=== PATIENT | male | born 1940 | race Caucasian/White ===

== ENCOUNTER 2017-08-12 15:42 | Observation (INO) ==
[2017-08-12] MEDS ORDERED: ceFAZolin 1,000 MG in Water for inj. (sterile) 10 ML IVP ONE (16:10)
[2017-08-12] MEDS ORDERED: Vancomycin 1,000 MG in D5% in Water 250 ML IVPB ONE (16:10)
--- NOTE | 2017-08-12 16:13 | Emergency Department Note ---
Disposition Clinical Impression: Cellulitis of left anterior lower leg Disposition: Admitted As Inpatient Condition: Good Referrals: Matias Meza DO [Primary Care Provider] - Forms: ED Satisfaction Letter Time of Disposition: 17:48 Extremity Problem HPI - General Chief complaint: ED Extremity Injury, Lower Stated complaint: redness and swelling to bilat legs Time Seen by Provider: 08/12/17 16:05 Source: patient Mode of arrival: ambulatory Limitations: no limitations Nursing Notes Reviewed: Yes Vital Signs Reviewed: Yes - History of Present Illness HPI Narrative: 77-year-old white male who presents with swelling and redness in his legs for 4 days. No fever. No history of trauma. He has had some intermittent chronic edema in his legs. It is worse than usual. The redness is new. No fever or chills. He has had some clear drainage. He is a diabetic, his blood sugars have not been running any higher than usual. Pt Subjective Complaint: extremity pain, extremity swelling, other (Redness) Onset (ago): day(s) (4) Consistency: constant Injury Location: left, right, lower extremity Pain Scale: 6 Quality: burning Radiation: none Improves with: nothing Worsens with: weight bearing, walking Associated symptoms: Reports: denies other symptoms - Related Data Home Medications Medication Instructions Recorded Confirmed Aspirin 81 mg PO DAILY 02/20/16 08/12/17 Atenolol [Tenormin] 50 mg PO DAILY 02/20/16 08/12/17 Clopidogrel [Plavix] 75 mg PO DAILY 02/20/16 08/12/17 Furosemide [Lasix] 40 mg PO BID 02/20/16 08/12/17 Hydralazine HCl 25 mg PO TID 02/20/16 08/12/17 Insulin ASPART [Novolog] 50 unit SQ HS 02/20/16 08/12/17 Insulin Human Regular [HumuLIN R] 40 unit SQ TIDWM 02/20/16 08/12/17 Iron 65 mg PO DAILY 02/20/16 08/12/17 Lisinopril 30 mg PO BID 02/20/16 08/12/17 Lovastatin [Altoprev] 40 mg PO HS 02/20/16 08/12/17 Mv-Mn/FA/Lycopene/Lut/Hb#178 [Marshall 1 each PO DAILY 02/20/16 08/12/17 Multivit For Men Caplet] Previous Rx's Medication Instructions Recorded OxyCODONE/APAP 5/325 [Percocet 1 each PO Q6HR PRN #12 tablet 04/15/16 5/325 MG] Allergies Allergy/AdvReac Type Severity Reaction Status Date / Time No Known Allergies Allergy Verified 03/27/17 11:02 All systems ED: reviewed and negative except as stated. Constitutional: Denies: fever, chills ENT ED: Denies: ear pain, throat pain Cardiovascular: Denies: chest pain Respiratory: Denies: cough, dyspnea Gastrointestinal: Denies: abdominal pain, nausea, vomiting Genitourinary: Denies: urgency, dysuria, frequency Musculoskeletal: Reports: as per HPI Integumentary: Reports: other (Erythema both legs, left greater than right.) Past Medical History - Past Medical History Medical history: Reports: arthritis, coronary artery disease, diabetes, hypertension, kidney stones, renal disease, other Surgical history: Reports: angioplasty/stent, knee replacement, other Psychiatric history: Reports: no psych history - Social History Smoking Status: Never smoker Smokeless Tobacco Status: No Alcohol use: Reports: none Drug use: Reports: none Physical Exam - General Limitations: no limitations General appearance: alert, in no apparent distress, obese - Head Head exam: atraumatic, normocephalic - Eye Eye exam: Present: PERRL, EOMI. Absent: scleral icterus, conjunctival injection - ENT ENT exam: normal oropharynx, mucous membranes moist, TM's normal bilaterally - Neck Neck exam: Present: normal inspection, full ROM, trachea midline. Absent: lymphadenopathy - Chest Chest inspection: Present: normal inspection, symmetric chest wall rise - Respiratory Respiratory exam: Present: normal lung sounds bilaterally. Absent: respiratory distress - Cardiovascular Cardiovascular exam: Present: regular rate, normal rhythm, normal heart sounds - Abdominal Exam Abdominal exam: Present: soft, Non-Tender, normal bowel sounds. Absent: organomegaly, mass - Extremities Exam Extremities exam: Present: normal capillary refill, other (4+ edema to the left lower leg starting at the knee extending down and including the ankle and foot. There is diffuse erythema over the anterior tibia at the junction of the middle and proximal one third. It extends over the medial lateral lower leg down to but not including the ankle. There are a few areas that have some clear drainage. The edema is pitting. The right lower extremity has 2+ edema starting below the knee and includes the ankle and foot. It is pitting. There are a few very small areas of minimal erythema.). Absent: tenderness - Back Exam Back exam: Absent: CVA tenderness (R), CVA tenderness (L) - Neurological Exam Neurological exam: Present: alert, oriented X3, normal gait. Absent: motor sensory deficit - Psychiatric Psychiatric exam: Present: normal affect, normal mood - Skin Skin exam: Present: erythema (Lower extremities as described above). Absent: cyanosis, diaphoresis Course Vital Signs Temperature 98.4 F 08/12/17 15:46 Pulse Rate 68 08/12/17 15:46 Respiratory Rate 18 08/12/17 15:46 Blood Pressure 196/84 08/12/17 15:46 O2 Sat by Pulse Oximetry 95 08/12/17 15:46 Temperature 98.4 F 08/12/17 15:46 Pulse Rate 61 08/12/17 17:34 Respiratory Rate 18 08/12/17 17:34 Blood Pressure 166/72 08/12/17 17:34 O2 Sat by Pulse Oximetry 98 08/12/17 17:34 Oxygen Delivery Oxygen Delivery Room Air Extremity Problem, Nontraumati - MDM Narrative Medical decision making narrative: Medically as a cellulitis of his left leg. He was started on IV Ancef and vancomycin. I discussed case with Dr. Siddiqi's accepted patient for admission. - Differential Diagnosis Likely: cellulitis, superficial thrombophlebitis, deep venous thrombosis, lower extremity edema - Lab Data Lab results reviewed: Yes I reviewed the patient's lab results. Result diagrams: 08/12/17 16:30 08/12/17 16:30 Lab Results 08/12/17 08/12/17 08/12/17 Range/Units 16:30 16:30 16:30 WBC 10.3 (4.3-11.1) K/mcL RBC 3.18 L (4.19-5.50) M/mcL Hgb 9.8 L (12.9-16.9) g/dL Hct 30.0 L (37.5-50.1) % MCV 94.3 (83.0-100.0) fL MCH 30.8 (28.0-33.3) pg MCHC 32.7 (31.6-35.5) g/dL RDW 14.0 (11.5-14.5) % Plt Count 260 (140-400) K/mcL MPV 10.1 (9.4-12.4) fL Immature Gran % 0.3 (0-4) % Seg Neutrophils % 63.3 % Lymphocytes % 20.1 % Monocytes % 14.1 % Eosinophils % 1.8 % Basophils % 0.4 % Neutrophils # 6.5 (1.6-8.9) K/mcL Lymphocytes # 2.1 (0.6-4.6) K/mcL Monocytes # 1.5 H (0.0-1.3) K/mcL Eosinophils # 0.2 (0.0-0.6) K/mcL Basophils # 0.0 (0.0-0.2) K/mcL Sodium 138 (136-145) mEq/L Potassium 4.7 H (3.5-4.5) mEq/L Chloride 107 (98-109) mEq/L Carbon Dioxide 22 (19-29) mEq/L BUN 47 H (8-26) mg/dL Creatinine 2.60 H (0.72-1.25) mg/dL Est GFR ( Amer) 29 L (> 60) Est GFR (Non-Af Amer) 24 L (> 60) BUN/Creatinine Ratio 18 (6-26) Glucose 199 H (70-99) mg/dL Calculated Osmolality 304 H (280-300) Lactic Acid 0.8 (0.5-2.2) mmol/L Calcium 8.9 (8.6-10.8) mg/dL Total Bilirubin 0.3 (0.2-1.2) mg/dL AST 18 (5-34) Units/L ALT 13 (0-55) Units/L Alkaline Phosphatase 120 (38-126) Units/L Serum Total Protein 6.6 (6.0-8.3) g/dL Albumin 2.4 L (3.5-5.0) g/dL Globulin 4.2 H (2.4-3.5) g/dL Albumin/Globulin Ratio 0.6 L (1.1-2.2) Urine Color (Yellow) Urine Clarity (Clear) Urine pH (5.0-8.0) pH Units Ur Specific [place] (1.010-1.025) Urine Protein (Neg-Trace) mg/dL Urine Glucose (UA) (Normal) mg/dL Urine Ketones (Negative) mg/dL Urine Blood (Negative) Urine Nitrite (Negative) Urine Bilirubin (Negative) Urine Urobilinogen (Normal) mg/dL Ur Leukocyte Esterase (Negative) Urine Microscopic RBC (0-3) per hpf Ur Squamous Epith Cells (None-Few) per lpf Urine Bacteria (None-Few) per hpf Hyaline Casts (None-Few) per lpf Urine Mucus (Few) Ur Culture Indicated? (NO) 08/12/17 Range/Units 16:35 WBC (4.3-11.1) K/mcL RBC (4.19-5.50) M/mcL Hgb (12.9-16.9) g/dL Hct (37.5-50.1) % MCV (83.0-100.0) fL MCH (28.0-33.3) pg MCHC (31.6-35.5) g/dL RDW (11.5-14.5) % Plt Count (140-400) K/mcL MPV (9.4-12.4) fL Immature Gran % (0-4) % Seg Neutrophils % % Lymphocytes % % Monocytes % % Eosinophils % % Basophils % % Neutrophils # (1.6-8.9) K/mcL Lymphocytes # (0.6-4.6) K/mcL Monocytes # (0.0-1.3) K/mcL Eosinophils # (0.0-0.6) K/mcL Basophils # (0.0-0.2) K/mcL Sodium (136-145) mEq/L Potassium (3.5-4.5) mEq/L Chloride (98-109) mEq/L Carbon Dioxide (19-29) mEq/L BUN (8-26) mg/dL Creatinine (0.72-1.25) mg/dL Est GFR ( Amer) (> 60) Est GFR (Non-Af Amer) (> 60) BUN/Creatinine Ratio (6-26) Glucose (70-99) mg/dL Calculated Osmolality (280-300) Lactic Acid (0.5-2.2) mmol/L Calcium (8.6-10.8) mg/dL Total Bilirubin (0.2-1.2) mg/dL AST (5-34) Units/L ALT (0-55) Units/L Alkaline Phosphatase (38-126) Units/L Serum Total Protein (6.0-8.3) g/dL Albumin (3.5-5.0) g/dL Globulin (2.4-3.5) g/dL Albumin/Globulin Ratio (1.1-2.2) Urine Color Yellow (Yellow) Urine Clarity Clear (Clear) Urine pH 6.0 (5.0-8.0) pH Units Ur Specific [place] 1.015 (1.010-1.025) Urine Protein >=300 H (Neg-Trace) mg/dL Urine Glucose (UA) 100 H (Normal) mg/dL Urine Ketones Negative (Negative) mg/dL Urine Blood Negative (Negative) Urine Nitrite Negative (Negative) Urine Bilirubin Negative (Negative) Urine Urobilinogen Normal (Normal) mg/dL Ur Leukocyte Esterase Negative (Negative) Urine Microscopic RBC 0-3 (0-3) per hpf Ur Squamous Epith Cells Few (None-Few) per lpf Urine Bacteria Few (None-Few) per hpf Hyaline Casts Few (None-Few) per lpf Urine Mucus Few (Few) Ur Culture Indicated? NO (NO)
[2017-08-12 16:39] LABS: Basophils % 0.4 %; Eosinophils # 0.2 K/mcL (0.0-0.6); Eosinophils % 1.8 %; Hemoglobin 9.8 g/dL (12.9-16.9); Immature Granulocytes % 0.3 % (0-4); Lymphocytes # 2.1 K/mcL (0.6-4.6); Lymphocytes % 20.1 %; Mean Corpuscular HGB Conc 32.7 g/dL (31.6-35.5); Mean Corpuscular Hemoglobin 30.8 pg (28.0-33.3); Mean Corpuscular Volume 94.3 fL (83.0-100.0); Mean Platelet Volume 10.1 fL (9.4-12.4); Monocytes # 1.5 K/mcL (0.0-1.3); Monocytes % 14.1 %; Neutrophils # 6.5 K/mcL (1.6-8.9); Platelet Count 260 K/mcL (140-400); Red Blood Count 3.18 M/mcL (4.19-5.50); Segmented Neutrophils % 63.3 %
[2017-08-12 16:49] LABS: Bilirubin,Urine Negative (Negative); Blood,Urine Negative (Negative); Clarity,Urine Clear (Clear); Color,Urine Yellow (Yellow); Glucose,Urine (UA) 100 mg/dL (Normal); Ketones,Urine Negative (Negative); Leukocyte Esterase,Urine Negative (Negative); Nitrite,Urine Negative (Negative); Protein,Urine >=300 mg/dL (Neg-Trace); Specific Gravity,Urine 1.015 (1.010-1.025); Urobilinogen,Urine Normal (Normal)
[2017-08-12 16:54] LABS: Bacteria,Urine Few per hpf (None-Few); Hyaline Casts,Urine Few per lpf (None-Few); Mucus,Urine Few (Few); RBC,Urine 0-3 per hpf (0-3); Squamous Epithelial Cell,Urine Few per lpf (None-Few)
[2017-08-12 16:55] LABS: Albumin 2.4 g/dL (3.5-5.0); Albumin/Globulin Ratio 0.6 (1.1-2.2); Bilirubin,Total 0.3 mg/dL (0.2-1.2); Calcium 8.9 mg/dL (8.6-10.8); Globulin 4.2 g/dL (2.4-3.5); Potassium 4.7 mEq/L (3.5-4.5); Total Protein 6.6 g/dL (6.0-8.3)
[2017-08-12] MEDS ORDERED: *HR* OxyCODONE/APAP 5/325 TABLET PO ONE (17:01)
[2017-08-12] MEDS ORDERED: Naloxone 0.4 MG/ML INJ IVP PRN (19:32)
[2017-08-12] MEDS ORDERED: Furosemide 40 MG TABLET PO SCH (21:00)
[2017-08-12] MEDS ORDERED: Insulin LISPRO 300 UNITS/3 ML VIAL SQ SCH (21:00)
[2017-08-12] MEDS ORDERED: Insulin DETEMIR 100 UNIT/ML per UNIT SQ ONE (22:30)
[2017-08-12] MEDS: *HR* OxyCODONE/APAP 5/325 TABLET PO PRN (23:11)
[2017-08-12] MEDS: hydrALAZINE 25 MG TABLET PO SCH (23:12)
[2017-08-12] MEDS: Lisinopril 20 MG TABLET PO SCH (23:12)
[2017-08-13] MEDS ORDERED: ceFAZolin 1,000 MG in D5% in Water (Mini-Bag+) 100 ML IVPB SCH
[2017-08-13] MEDS ORDERED: *HR* Enoxaparin 40 MG/0.4 ML SYRINGE SQ SCH (06:00)
[2017-08-13] MEDS: *HR* OxyCODONE/APAP 5/325 TABLET PO PRN ×2 (06:50→17:06)
[2017-08-13] MEDS: Lisinopril 20 MG TABLET PO SCH (09:18)
[2017-08-13] MEDS: Multivit/Ca/Min/Fe/FA 1 TAB TABLET PO SCH (09:18)
[2017-08-13] MEDS: Aspirin 81 MG TAB.CHEW PO SCH (09:19)
[2017-08-13] MEDS: hydrALAZINE 25 MG TABLET PO SCH ×3 (09:19→21:31)
--- NOTE | 2017-08-13 12:33 | Internal Med History&Physical ---
Date of Encounter: 08/13/17 Time of Encounter: 11:40 Assessment and Plan (1) Cellulitis of left anterior lower leg Current visit: Yes Status: Acute He has been started on IV Ancef. He was given vancomycin in the emergency room. Will add lactobacillus. (2) Edema Current visit: Yes Status: Chronic We will check d-dimer, BN peptide, and start IV Bumex Qualifiers: Edema type: unspecified Qualified Code(s): R60.9 - Edema, unspecified (3) CKD (chronic kidney disease) Current visit: Yes Status: Acute Will monitor renal indices. Qualifiers: Chronic kidney disease stage: stage 4 (severe) Qualified Code(s): N18.4 - Chronic kidney disease, stage 4 (severe) (4) Anemia Current visit: Yes Status: Acute Order anemia testing in a.m. Qualifiers: Anemia type: unspecified type Qualified Code(s): D64.9 - Anemia, unspecified (5) Hyperuricemia Current visit: Yes Status: Acute Uric acid was 8.2 on 09/17/2016. Will recheck. Internal Medicine - H&P: HPI Chief complaint: Leg redness with weeping edema Admitted From: Home Plans for Post Hospital Care: Home History of present illness: Mr. Cruz is a 77 year old male who came to emergency room stating he had increasing redness and weeping edema on his left lower leg onset approximately 1 week earlier. He has chronic edema of the legs that has been present for years but he thinks the edema has slightly worsened. He denies fevers or chills. He was evaluated in emergency room and felt to have left lower leg cellulitis. He was admitted to [facility] floor for ongoing care needs. He states he has had bilateral edema in the legs and sustained an injury several years ago to the left lower leg resulting in a fracture. He has had bilateral knee replacements. He has DJD but denies gout or other bone joint or muscle disorders. His cardiovascular history is significant for hypertension and known ASHD status post single stents placed in 2007 in 2010. He has not had a stress test or heart cath since the last stent. An echocardiogram done 08/12/2013 showed LVEF of 55-60%. There was increased thickness measurement of the interventricular septum and posterior wall at 1.20 cm each. There was LAE at 4.80 cm. There was mild MR and mild to moderate tricuspid regurgitation. There was significant elevation of the RVSP estimated 64-69 mmHg. There was felt to be moderate diastolic dysfunction of the LV present. He denies DVT or pulmonary emboli. Past Med Surg Social Fam HX - Past Medical History Medical history: arthritis, coronary artery disease, diabetes, hypertension, kidney stones, renal disease, other Psychiatric history: no psych history - Past Surgical History Surgical History: angioplasty/stent, knee replacement, other - Social History Smoking Status: Never smoker Smokeless Tobacco Status: No Alcohol use: none Drug use: none Internal Medicine - H&P: Meds Aspirin 81 mg PO DAILY 02/20/16 [History] Atenolol [Tenormin] 50 mg PO DAILY 02/20/16 [History] Clopidogrel [Plavix] 75 mg PO DAILY 02/20/16 [History] Furosemide [Lasix] 40 mg PO BID 02/20/16 [History] Hydralazine HCl 25 mg PO TID 02/20/16 [History] Insulin ASPART [Novolog] 50 unit SQ HS 02/20/16 [History] Insulin Human Regular [HumuLIN R] 40 unit SQ TIDWM 02/20/16 [History] Iron 65 mg PO DAILY 02/20/16 [History] Lisinopril 30 mg PO BID 02/20/16 [History] Lovastatin [Altoprev] 40 mg PO HS 02/20/16 [History] Mv-Mn/FA/Lycopene/Lut/Hb#178 [Marshall Multivit For Men Caplet] 1 each PO DAILY [History] OxyCODONE/APAP 5/325 [Percocet 5/325 MG] 1 each PO Q6HR PRN #12 tablet 04/15/16 [Rx] 3 Allergy/AdvReac Type Severity Reaction Status Date / Time No Known Allergies Allergy Verified 03/27/17 11:02 All Systems PM: A 10-system review of systems was performed and is negative for pertinent findings except as documented above in the HPI. Review of systems: Gen.: He states his weight has been stable for many months Cardiovascular: As per history of present illness Respiratory: He smoked from age [age]. He denies chronic lung disease and does not use home oxygen. GI: He denies disorders of his liver gallbladder or exocrine pancreas : He has had uric acid kidney stones in the past. He denies history of gout. 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 Denies other kidney bladder prostate disorders. Neurologic: He denies large distribution strokes or seizures. Endocrine: He was diagnosed with DM 2 approximately 2001. He has hyperlipidemia but denies thyroid disease. Hematology/oncology: He has chronic anemia. He denies internal malignancies. Psychiatric: He denies anxiety depression or other mental health issues Musk skeletal: As per history of present illness - Constitutional Vitals: Temp Pulse Resp BP Pulse Ox 98.1 F 73 18 185/80 96 08/13/17 10:47 08/13/17 10:47 08/13/17 10:47 08/13/17 10:47 08/13/17 10:47 Exam: Gen.: He is a well-developed well-nourished male sitting on the side of the bed who appears in no acute distress. HEENT: Head is atraumatic and normocephalic. Eyes: EOMI. There is no scleral icterus. Mouth: Mucosa is moist. Neck: Supple and nontender. There is no thyromegaly or adenopathy noted. Heart: Regular without murmurs gallops or ectopics Lungs: No wheezes or crackles are heard. Abdomen: Soft and nontender. No masses or guarding are noted. Extremities: He has 2-3+ edema of the right leg and 3-4+ edema of the left lower leg. There is slight deformity of the left lower leg from previous injury and surgery. He has some diffuse erythema of the left lower leg with a few areas of serous fluid drainage. Dorsalis pedis and posttibial pulses are not palpable. He has minimal DJD changes of his hands. Neurologic: Mental status: He is talkative and a good historian. Cranial nerves : Smile is symmetric. Forehead wrinkles bilaterally. Temperature its midline. EOMI. Motor: There is no pronator drift. Cerebellar: Fair to nose is intact bilaterally. Skin: [place] and dry with left lower leg abnormalities as described. Internal Med - H&P Results - Labs CBC & Chem 7: 08/12/17 16:30 08/12/17 16:30
[2017-08-13] MEDS: ceFAZolin 1,000 MG in Water for inj. (sterile) 10 ML IVPB SCH (14:16)
[2017-08-13] MEDS: Bumetanide 1 MG/4 ML VIAL IVP SCH (14:16)
[2017-08-13] MEDS ORDERED: *HR* Enoxaparin 100 MG/ML SYRINGE SQ STA (14:30)
[2017-08-13] MEDS: cloNIDine HCl 0.1 MG TABLET PO SCH ×2 (14:44→21:31)
[2017-08-13] MEDS ORDERED: Insulin DETEMIR 100 UNIT/ML X5UNITS SQ SCH (21:00)
[2017-08-14] MEDS: ceFAZolin 1,000 MG in Water for inj. (sterile) 10 ML IVPB SCH (02:23)
[2017-08-14] MEDS: *HR* OxyCODONE/APAP 5/325 TABLET PO PRN (03:35)
[2017-08-14] MEDS ORDERED: *HR* Enoxaparin 30 MG/0.3 ML SYRINGE SQ SCH (06:00)
[2017-08-14] MEDS ORDERED: *HR* Enoxaparin 150 MG/ML SYRINGE SQ SCH (06:00)
[2017-08-14 06:05] LABS: Basophils % 0.6 %; Eosinophils # 0.3 K/mcL (0.0-0.6); Hematocrit 26.3 % (37.5-50.1); Hemoglobin 8.5 g/dL (12.9-16.9); Immature Granulocytes % 0.4 % (0-4); Lymphocytes # 1.6 K/mcL (0.6-4.6); Lymphocytes % 24.2 %; Mean Corpuscular HGB Conc 32.3 g/dL (31.6-35.5); Mean Corpuscular Hemoglobin 30.4 pg (28.0-33.3); Mean Corpuscular Volume 93.9 fL (83.0-100.0); Mean Platelet Volume 10.4 fL (9.4-12.4); Neutrophils # 3.9 K/mcL (1.6-8.9); Platelet Count 243 K/mcL (140-400); Segmented Neutrophils % 56.8 %
[2017-08-14] MEDS: Bumetanide 1 MG/4 ML VIAL IVP SCH (07:25)
[2017-08-14] MEDS: Insulin Regular, Human 100 UNIT/ML SQ SCH (07:25)
[2017-08-14] MEDS ORDERED: Bumetanide 1 MG/4 ML VIAL IVP SCH (08:00)
[2017-08-14] MEDS: Multivit/Ca/Min/Fe/FA 1 TAB TABLET PO SCH (08:28)
[2017-08-14] MEDS: cloNIDine HCl 0.1 MG TABLET PO SCH (08:28)
[2017-08-14] MEDS: Aspirin 81 MG TAB.CHEW PO SCH (08:28)
[2017-08-14] MEDS: hydrALAZINE 25 MG TABLET PO SCH (08:28)
[2017-08-14 08:52] LABS: Hemoglobin A1C 7.6 %
[2017-08-14 11:24] VITALS: BP 161/68
[2017-08-14 12:23] LABS: % Iron Saturation 15 % (20-55); Iron 34 mcg/dL (65-175); Transferrin 159 mg/dL (174-364)
--- NOTE | 2017-08-14 12:39 | Discharge Summary ---
Date of Encounter: 08/14/17 Time of Encounter: 12:25 - Discharge Diagnosis (1) Cellulitis of left anterior lower leg Priority: Primary Status: Acute (2) Edema Priority: Secondary Status: Chronic Qualifiers: Edema type: unspecified Qualified Code(s): R60.9 - Edema, unspecified (3) CKD (chronic kidney disease) Priority: Secondary Status: Chronic Qualifiers: Chronic kidney disease stage: stage 4 (severe) Qualified Code(s): N18.4 - Chronic kidney disease, stage 4 (severe) (4) Anemia Priority: Secondary Status: Chronic Qualifiers: Anemia type: unspecified type Qualified Code(s): D64.9 - Anemia, unspecified (5) Hyperuricemia Priority: Secondary Status: Chronic - Discharge Medications Prescriptions: Bumetanide [Bumex] 2 mg PO DAILY #30 tablet cephALEXin [Keflex] 500 mg PO TID #9 capsule Isosorbide MONOnitrate (24 HR) [Imdur] 30 mg PO DAILY #30 tab.er.24h Lactobacillus [Culturelle] 1 each PO BID #6 cap.sprink Home Medications: Atenolol [Tenormin] 50 mg PO DAILY 02/20/16 [History] Clopidogrel [Plavix] 75 mg PO DAILY 02/20/16 [History] Hydralazine HCl 25 mg PO TID 02/20/16 [History] Insulin ASPART [Novolog] 50 unit SQ HS 02/20/16 [History] Insulin Human Regular [HumuLIN R] 40 unit SQ TIDWM 02/20/16 [History] Iron 65 mg PO DAILY 02/20/16 [History] Lisinopril 30 mg PO BID 02/20/16 [History] Lovastatin [Altoprev] 40 mg PO HS 02/20/16 [History] Mv-Mn/FA/Lycopene/Lut/Hb#178 [Marshall Multivit For Men Caplet] 1 each PO DAILY [History] OxyCODONE/APAP 5/325 [Percocet 5/325 MG] 1 each PO Q6HR PRN #12 tablet 04/15/16 [Rx] Aspirin 81 mg PO Q48H #0 08/14/17 [Rx] Bumetanide [Bumex] 2 mg PO DAILY #30 tablet 08/14/17 [Rx] Isosorbide MONOnitrate (24 HR) [Imdur] 30 mg PO DAILY #30 tab.er.24h 08/14/17 [ Rx] Lactobacillus [Culturelle] 1 each PO BID #6 cap.sprink 08/14/17 [Rx] cephALEXin [Keflex] 500 mg PO TID #9 capsule 08/14/17 [Rx] Allergies/Adverse Reactions: 3 Allergy/AdvReac Type Severity Reaction Status Date / Time No Known Allergies Allergy Verified 03/27/17 11:02 Procedures/tests Complete & Pending: Procedures Performed prior 72 hours Category Date Time Status Venous Doppler [EV venous imaging LE BI] Routine Y 08/13/17 14:00 Completed Date of admission: 08/12/17 17:59 Primary care physician: Matias Meza DO - Patient Status Disposition: Home, Self-Care Condition: Good Functional capacity at discharge: independent ambulation Overall status at discharge: patient is progressing back to baseline - Discharge Instructions Follow Up With: Matias Meza DO [Primary Care Provider] - 1 week - Diet and Activity Activity: resume usual activities as tolerated Diet: advance to your usual diet Hospital course: Mr. Cruz is a 77 year old male who came to emergency room stating he had increasing redness and weeping edema on his left lower leg onset approximately 1 week earlier. He has chronic edema of the legs that has been present for years but he thinks the edema has slightly worsened. He denies fevers or chills. He was evaluated in emergency room and felt to have left lower leg cellulitis. He was admitted to [facility] floor for ongoing care needs. Initial orders were written by the emergency room physician. I saw him on August 13 and performed the history and physical. He was started on IV Ancef and was also given a dose of IV vancomycin in the emergency room but this was not continued. He had decreased erythema of the left lower leg when I saw him on August 14. He was started on IV Bumex and there was minimal change in the edema overnight. On August 14 he stated he wished to be discharged home. He will continue with oral Bumex 2 mg every morning instead of Lasix. He will continue with antibiotics and probiotics for 3 additional days after discharge for left lower leg cellulitis. Anemia testing was ordered with results pending at time of discharge. Uric acid level returned elevated at 8.2. His PCP and/or baker bench can initiate uric acid lowering therapy. He will follow with his PCP Dr. Matias Meza tomorrow as scheduled. - Time Spent with Patient Total time spent providing and/or coordinating discharge services: - Constitutional Vitals: Temp Pulse Resp BP Pulse Ox 98.1 F 56 17 161/68 97 08/14/17 11:23 08/14/17 11:23 08/14/17 11:23 08/14/17 11:23 08/14/17 11:23
[2017-08-14 12:47] LABS: Ferritin 179 ng/ml (22-275)
[2017-08-14 12:56] LABS: Folate 14.7 ng/mL (7.0-31.4)
== END 2017-08-14 13:17 | disposition home or self-care (01) ==
LOC: EMEROOPIK 15:42 → INPPIK 15:42
PROVIDERS: ADMIT Internal Medicine; ATTEND Internal Medicine